=== PATIENT | male | born 1975 | race Caucasian/White ===

== ENCOUNTER 2017-11-22 20:08 | Emergency (ER) | payer OTHER ==
[~2017-11-22] VITALS: Ht 180.3 cm; Wt 94.0 kg
[2017-11-22 20:10] VITALS: BP 132/90
[2017-11-22] MEDS ORDERED: LIDOCAINE 2%, 20ML SQ ONE (20:30)
[2017-11-22] MEDS ORDERED: LIDOCAINE-MPF 2% ,5ML ONE (20:32)
[2017-11-22] MEDS ORDERED: CEFAZOLIN PMX 1GM/50ML 50 ML ONE (21:12)
[2017-11-22] MEDS ORDERED: SODIUM CHLORIDE FLUSH 10ML SYR IVF ONE (21:30)
[2017-11-22] MEDS ORDERED: CEFAZOLIN PMX 1GM/50ML 50 ML IVPB ONE (21:30)
== END 2017-11-22 22:06 | disposition home or self-care (01) ==
LOC: ED 22:00
DX: S62.524B Nondisplaced fracture of distal phalanx of right thumb, initial encounter for open fracture (principal); W27.5XXA Contact with paper-cutter, initial encounter; Y93.89 Activity, other specified; Y92.098 Other place in other non-institutional residence as the place of occurrence of the external cause; Y99.8 Other external cause status
CPT/HCPCS: 12041; 73130; 96365; 99284; J0690; J3490